=== PATIENT | male | born 1985 | race Caucasian/White ===

== ENCOUNTER 2022-02-05 11:58 | Emergency (ER) | payer OTHER, SELFPAY ==
[2022-02-05] MEDS ORDERED: ASPIRIN 81 MG CHEWABLE TABLET ONE (12:15)
[2022-02-05 12:35] LABS: Absolute Lymphocytes (CBC) 1.7 K/uL (0.7-4.9); Hematocrit 43.2 % (39.6-49.0); Lymphocytes % 20.2 % (15.3-44.8); MCV 81.3 fL (80-100); MPV 9.1 fL (7.6-11.3); RBC Red Blood Cell Count 5.32 M/uL (4.33-5.43)
[2022-02-05 12:54] LABS: ALT/SGPT 37 U/L (12-78); AST/SGOT 17 U/L (15-37); Albumin 3.9 g/dL (3.4-5.0); Alkaline Phosphatase 108 U/L (45-117); BUN Blood Urea Nitrogen 11 mg/dL (7-18); Bicarbonate 27 mmol/L (21-32); Bilirubin Total 0.2 mg/dL (0.2-1.0); Glomerular Filtration Rate 111 ml/min (=/>90); Glucose Level 95 mg/dL (74-106); Magnesium 1.9 mg/dL (1.8-2.4); NT PRO-BNP 34 pg/mL (<125); Potassium 3.9 mmol/L (3.5-5.1); Protein, Total 7.6 g/dL (6.4-8.2); Sodium Level 137 mmol/L (136-145); Troponin High Sensitivity 5.4 pg/mL (<58.9)
[2022-02-05 12:55] LABS: Bilirubin Direct < 0.1 mg/dL (0-0.2)
--- NOTE | 2022-02-05 13:24 | RAD REPORT ---
EXAM DESCRIPTION: RAD - Chest Single View - 02/05/2022 1:19 pm CLINICAL HISTORY: CHEST PAIN Chest pain. COMPARISON: No comparisons FINDINGS: Portable technique limits examination quality. The lungs are grossly clear. The heart is normal in size. No displaced fractures. IMPRESSION: No acute intrathoracic process suspected.
[2022-02-05] MEDS ORDERED: ONDANSETRON 4 MG/2 ML VIAL ONE (14:03)
[2022-02-05] MEDS ORDERED: MORPHINE 4 MG/ML SYR ONE (14:03)
--- NOTE | 2022-02-05 16:37 | ER ---
Nurse's Notes [facility] Name: Ainsley Zheng Age: 36 yrs Sex: Male : 1985 Arrival Date: 02/05/2022 Time: 12:00 Bed 24 Private MD: Diagnosis: Chest pain, unspecified Presentation: 02/05 12:05 Chief complaint: Patient states: left sided chest pain for the last few days. 3 Coronavirus screen: Vaccine status: Patient reports receiving the 2nd dose of the covid vaccine. Ebola Screen: No symptoms or risks identified at this time. Initial Sepsis Screen: Does the patient meet any 2 criteria? No. Patient's initial sepsis screen is negative. Does the patient have a suspected source of infection? No. Patient's initial sepsis screen is negative. Risk Assessment: Do you want to hurt yourself or someone else? Patient reports no desire to harm self or others. Onset of symptoms was February 05, 2022. 12:05 Method Of Arrival: Ambulatory [facility] 12:05 Acuity: BEVERLEY 3 3 Triage Assessment: 12:05 General: Appears distressed, uncomfortable, Behavior is cooperative, appropriate for 3 age, anxious. Pain: Complains of pain in left clavicle, anterior aspect of left upper chest, mid-sternal area and left breast Pain does not radiate. Pain currently is 8 out of 10 on a pain scale. Quality of pain is described as burning, Pain began 2-3 days ago. Is continuous, Alleviated by rest, Aggravated by increased activity. EENT: No signs and/or symptoms were reported regarding the EENT system. Neuro: Level of Consciousness is awake, alert, obeys commands, Oriented to person, place, time, situation. Cardiovascular: Capillary refill < 3 seconds Patient's skin is warm and dry. Cardiovascular: Rhythm is sinus rhythm. Respiratory: Airway is patent Respiratory effort is even, unlabored, Respiratory pattern is regular, symmetrical. GI: No signs and/or symptoms were reported involving the gastrointestinal system. Abdomen is flat, non-distended. : No signs and/or symptoms were reported regarding the genitourinary system. Derm: No signs and/or symptoms reported regarding the dermatologic system. Musculoskeletal: No signs and/or symptoms reported regarding the musculoskeletal system. Circulation, motion, and sensation intact. Range of motion: intact in all extremities. Historical: - Allergies: 13:49 No Known Allergies; eh3 - Immunization history:: Adult Immunizations up to date. - Social history:: Smoking status: Patient denies any tobacco usage or history of. Patient/guardian denies using alcohol. Screenin:05 Abuse screen: Denies threats or abuse. Denies injuries from another. Nutritional eh3 screening: No deficits noted. Tuberculosis screening: No symptoms or risk factors identified. Fall Risk None identified. Assessment: 12:05 Reassessment: No changes from previously documented assessment. See triage assessment. eh3 General:. Pain: Complains of pain in left breast and mid-sternal area and anterior aspect of left upper chest and left clavicle. 13:05 Reassessment: Patient and/or family updated on plan of care and expected duration. Pain eh3 level reassessed. Patient is alert, oriented x 3, equal unlabored respirations, skin warm/dry/pink. 13:47 Pain: Complains of pain in forehead, right cheek and left cheek Quality of pain is eh3 described as tingling, numb, Pain began suddenly. 14:30 Reassessment: Patient and/or family updated on plan of care and expected duration. Pain eh3 level reassessed. Patient is alert, oriented x 3, equal unlabored respirations, skin warm/dry/pink. Patient states symptoms have improved. Pain: Denies pain. 15:30 Reassessment: Patient and/or family updated on plan of care and expected duration. Pain eh3 level reassessed. Patient is alert, oriented x 3, equal unlabored respirations, skin warm/dry/pink. 16:30 Reassessment: Patient and/or family updated on plan of care and expected duration. Pain eh3 level reassessed. Patient is alert, oriented x 3, equal unlabored respirations, skin warm/dry/pink. Vital Signs: 12:05 BP 136 / 93; Pulse 79; Resp 12; Temp 98.1(O); Pulse Ox 100% on R/A; Weight 104.33 kg; eh3 Height 6 ft. 1 in. (185.42 cm); Pain 8/10; 13:05 BP 132 / 84; Pulse 80; Resp 13; Pulse Ox 100% on R/A; Pain 8/10; eh3 14:05 BP 131 / 78; Pulse 75; Resp 12; Pulse Ox 98% on R/A; eh3 15:00 BP 125 / 77; Pulse 74; Resp 12; Pulse Ox 97% on R/A; eh3 15:30 BP 124 / 71; Pulse 67; Resp 12; Pulse Ox 96% on R/A; eh3 16:30 BP 132 / 80; Pulse 74; Resp 17; Pulse Ox 97% on R/A; eh3 12:05 Body Mass Index 30.35 (104.33 kg, 185.42 cm) eh3 ED Course: 12:00 Patient arrived in ED. mr 12:04 Vincent Jacklyn, [facility]. kb 12:04 Bernard Oliver MD is Attending Physician. kb 12:05 Patient maintains SpO2 saturation greater than 95% on room air. eh3 12:05 Arm band placed on right wrist. eh3 12:05 Patient has correct armband on for positive identification. Placed in gown. Bed in low eh3 position. Call light in reach. Side rails up X2. Client placed on continuous cardiac and pulse oximetry monitoring. NIBP monitoring applied. Door closed. Noise minimized. 12:13 Aisha Ross, RN is Primary Nurse. eh3 13:20 XRAY Chest (1 view) In Process Unspecified. EDMS 13:49 Triage completed. eh3 17:12 No provider procedures requiring assistance completed. IV discontinued, intact, eh3 bleeding controlled, No redness/swelling at site. Pressure dressing applied. Administered Medications: 12:15 Drug: Aspirin Chewable Tablet 324 mg Route: PO; eh3 13:00 Follow up: Response: No adverse reaction eh3 14:08 Drug: morphine 4 mg Route: IVP; Infused Over: 4 mins; Site: right antecubital; eh3 15:06 Follow up: Response: Pain is decreased eh3 14:08 Drug: Zofran (Ondansetron) 4 mg Route: IVP; Site: right antecubital; eh3 15:05 Follow up: Response: No adverse reaction eh3 Medication: 17:13 VIS not applicable for this client. eh3 Outcome: 16:36 Discharge ordered by . kb 17:12 Discharged to home ambulatory, with family. eh3 17:12 Condition: stable 17:12 Discharge instructions given to patient, family, Instructed on discharge instructions, follow up and referral plans. Demonstrated understanding of instructions, follow-up care. 17:35 Patient left the ED. eh3 Signatures: Dispatcher [employer] EDJacklyn Garibay, ROSA CHÁVEZ-Ben HernandezaMalka mr Sadie Darnell, RN RN ld1 Aisha Ross, LARS RN eh3 Corrections: (The following items were deleted from the chart) 12:06 12:05 Inserted saline lock: 20 gauge in left antecubital area, using aseptic technique. ld1 Blood collected. ld1 13:58 13:05 Pain: Pain currently is 8 out of 10 on a pain scale. eh3 eh3 15:05 14:30 Reassessment: Patient and/or family updated on plan of care and expected eh3 duration. Pain level reassessed. Patient is alert, oriented x 3, equal unlabored respirations, skin warm/dry/pink. Patient states symptoms have improved. eh3
--- NOTE | 2022-02-05 16:37 | EDPHYS ---
Physician Documentation [facility] Name: Ainsley Zheng Age: 36 yrs Sex: Male : 1985 Arrival Date: 02/05/2022 Time: 12:00 Bed 24 Private MD: ED Physician Bernard Oliver HPI: 02/05 13:28 This 36 yrs old Male presents to ER via Unassigned with complaints of Chest Pain, Back kb Pain. 13:28 The patient or guardian reports chest pain that is located primarily in the anterior kb chest wall, left. The pain does not radiate. Associated signs and symptoms: The patient has no apparent associated signs or symptoms. The chest pain is described as aching. Duration: The patient or guardian reports a single episode. Modifying factors: The symptoms are alleviated by rest, the symptoms are aggravated by activity. Severity of pain: At its worst the pain was moderate in the emergency department the pain has improved. The patient has not experienced similar symptoms in the past. The patient has not recently seen a physician. Pt reports left sided chest pain for 3-4 days. Pain worse with exertion and improves with rest. Denies any cardiac history. Historical: - Allergies: 13:49 No Known Allergies; eh3 - Immunization history:: Adult Immunizations up to date. - Social history:: Smoking status: Patient denies any tobacco usage or history of. Patient/guardian denies using alcohol. ROS: 13:27 Constitutional: Negative for fever, chills, and weight loss. kb 13:27 Cardiovascular: Positive for chest pain, Negative for edema, orthopnea, palpitations, paroxysmal nocturnal dyspnea. 13:27 All other systems are negative. Exam: 13:27 Constitutional: This is a well developed, well nourished patient who is awake, alert, kb and in no acute distress. Head/Face: Normocephalic, atraumatic. ENT: Moist Mucous membranes Cardiovascular: Regular rate and rhythm with a normal S1 and S2. No gallops, murmurs, or rubs. No pulse deficits. Respiratory: Respirations even and unlabored. No increased work of breathing. Talking in full sentences Abdomen/GI: Soft, non-tender. No distention Skin: Warm, dry with normal turgor. Normal color. MS/ Extremity: Pulses equal, no cyanosis. Neurovascular intact. Full, normal range of motion. Neuro: Awake and alert, GCS 15, oriented to person, place, time, and situation. Moves all extremities. Normal gait. Psych: Awake, alert, with orientation to person, place and time. Behavior, mood, and affect are within normal limits. 14:12 ECG was reviewed by the Attending Physician. kb Vital Signs: 12:05 BP 136 / 93; Pulse 79; Resp 12; Temp 98.1(O); Pulse Ox 100% on R/A; Weight 104.33 kg; eh3 Height 6 ft. 1 in. (185.42 cm); Pain 8/10; 13:05 BP 132 / 84; Pulse 80; Resp 13; Pulse Ox 100% on R/A; Pain 8/10; eh3 14:05 BP 131 / 78; Pulse 75; Resp 12; Pulse Ox 98% on R/A; eh3 15:00 BP 125 / 77; Pulse 74; Resp 12; Pulse Ox 97% on R/A; eh3 15:30 BP 124 / 71; Pulse 67; Resp 12; Pulse Ox 96% on R/A; eh3 16:30 BP 132 / 80; Pulse 74; Resp 17; Pulse Ox 97% on R/A; eh3 12:05 Body Mass Index 30.35 (104.33 kg, 185.42 cm) eh3 MDM: 12:04 Patient medically screened. kb 13:27 Data reviewed: vital signs, nurses notes. Data interpreted: Pulse oximetry: on room air kb is 100 %. Interpretation: normal. Counseling: I had a detailed discussion with the patient and/or guardian regarding: the historical points, exam findings, and any diagnostic results supporting the discharge/admit diagnosis, lab results, radiology results, the need for outpatient follow up, a family practitioner, to return to the emergency department if symptoms worsen or persist or if there are any questions or concerns that arise at home. 02/05 12:07 Order name: Basic Metabolic Panel; Complete Time: 13:05 kb 02/05 12:07 Order name: CBC with Diff; Complete Time: 12:42 kb 02/05 12:07 Order name: D-Dimer; Complete Time: 12:38 kb 02/05 12:07 Order name: LFT's; Complete Time: 13:05 kb 02/05 12:07 Order name: Magnesium; Complete Time: 13:05 kb 02/05 12:07 Order name: NT PRO-BNP; Complete Time: 13:05 kb 02/05 12:07 Order name: Troponin HS; Complete Time: 13:05 kb 02/05 12:07 Order name: XRAY Chest (1 view); Complete Time: 13:26 kb 02/05 12:07 Order name: EKG; Complete Time: 12:07 kb 02/05 12:07 Order name: Cardiac monitoring; Complete Time: 12:14 kb 02/05 14:32 Order name: Troponin HS; Complete Time: 16:36 kb 02/05 12:07 Order name: EKG - Nurse/Tech; Complete Time: 12:14 kb 02/05 12:07 Order name: IV Saline Lock; Complete Time: 12: kb 02/05 12:07 Order name: Labs collected and sent; Complete Time: 12:26 kb 02/05 12:07 Order name: O2 Per Protocol; Complete Time: 12:14 kb 02/05 12:07 Order name: O2 Sat Monitoring; Complete Time: 12:14 kb 02/05 15:29 Order name: Labs - recollect needed: please recollect green top; Complete Time: 16:01 em1 EC:12 Rate is 81 beats/min. Rhythm is regular. QRS [place] is Normal. IN interval is normal at kb 154 msec. QRS interval is normal at 94 msec. QT interval is normal at 413 msec. Administered Medications: 12:15 Drug: Aspirin Chewable Tablet 324 mg Route: PO; 3 13:00 Follow up: Response: No adverse reaction 3 14:08 Drug: morphine 4 mg Route: IVP; Infused Over: 4 mins; Site: right antecubital; eh3 15:06 Follow up: Response: Pain is decreased eh3 14:08 Drug: Zofran (Ondansetron) 4 mg Route: IVP; Site: right antecubital; eh3 15:05 Follow up: Response: No adverse reaction 3 Disposition Summary: 02/05/22 16:36 Discharge Ordered Location: Home kb Condition: Stable kb Diagnosis - Chest pain, unspecified kb Followup: kb - With: Emergency Department - When: As needed - Reason: Worsening of condition Followup: kb - With: Private Physician - When: 2 - 3 days - Reason: Recheck today's complaints, Continuance of care, Re-evaluation by your physician Discharge Instructions: - Discharge Summary Sheet kb - Nonspecific Chest Pain, Adult, [id number] kb Forms: - Medication Reconciliation Form kb - Thank You Letter kb - Antibiotic Education kb - Prescription Opioid Use kb - Family Work Release 3 Signatures: Dispatcher [employer] Jacklyn Cabello, KYLER-C POSTAL SERVICE MAIL PROCESSOR-Patrick Arguelles em1 Aisha Ross, RN RN eh3
[2022-02-05 18:47] VITALS: TEMP 98.1
[2022-02-05 18:53] VITALS: BP 132/80; O2SAT 97
== END 2022-02-05 17:35 | disposition home or self-care (01) ==
LOC: ER 11:58
DX: R07.89 Other chest pain (principal)
CPT/HCPCS: 36415; 71045; 80048; 80076; 83735; 83880; 84484; 85025; 85379; 93005; 96374; 96375; 99284; J2405

== ENCOUNTER 2022-11-23 08:11 | Emergency (ER) | payer OTHER, SELFPAY ==
[2022-11-23 09:11] LABS: Absolute Lymphocytes (CBC) 1.3 K/uL (0.7-4.9); Hematocrit 41.6 % (39.6-49.0); Lymphocytes % 27.6 % (15.3-44.8); MCV 80.6 fL (80-100); Platelets 195 thou/uL (152-406); RBC Red Blood Cell Count 5.16 M/uL (4.33-5.43)
[2022-11-23 09:20] LABS: Potassium 3.9 mEq/L (3.5-5.1)
--- NOTE | 2022-11-23 09:24 | RAD REPORT ---
EXAM DESCRIPTION: CT - Head C Spine Cap Raya Robison - 11/23/2022 8:46 am CLINICAL HISTORY: Pain;Trauma COMPARISON: No comparisons TECHNIQUE: Head and cervical spine CT images were obtained without IV contrast. Chest, abdomen, and pelvis CT images were obtained following intravenous administration of 100 mL Isovue-300. Multiplanar reformats were generated and reviewed. All CT scans are performed using dose optimization technique as appropriate and may include automated exposure control or mA/KV adjustment according to patient size. FINDINGS: CT HEAD: No intracranial hemorrhage, mass effect, or edema. No evidence of acute territorial infarct. No midli ne shift or abnormal fluid collection. The ventricles are normal in caliber and configuration for age . Basal cisterns are patent. Mastoid aircells and paranasal sinuses are clear. No acute skull fractur e. CT CERVICAL SPINE: No acute cervical spine fracture or subluxation. Vertebral body heights are well maintained. Facet bhupendra ints are normal in alignment. No hyperattenuating canal hematoma. Prevertebral and paraspinous soft t issues are unremarkable. CT CHEST: No pneumothorax, pulmonary contusion or pleural fluid collection. No mediastinal hematoma and the aor ta and pulmonary arteries are unremarkable. No chest will mass or abnormal axillary finding. No displ aced rib fracture or other significant bony finding. CT ABDOMEN/ PELVIS: No evidence of traumatic injury to solid abdominal viscera. Gallbladder and biliary tree are unremark able. Incidentally noted bilateral small fat containing inguinal hernias. No bowel injury or signific ant finding. No free air, free fluid or abnormal fat stranding. No urinary bladder abnormality. No significant bony finding. IMPRESSION: No acute traumatic abnormalities. No other acute findings.
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
[2022-11-23] MEDS ORDERED: KETOROLAC 30 MG/ML INJ ONE (10:14)
[2022-11-23 10:58] VITALS: TEMP 98.1
[2022-11-23 11:00] VITALS: BP 162/98; O2SAT 98
== END 2022-11-23 10:29 | disposition home or self-care (01) ==
LOC: ER 08:11
DX: M54.9 Dorsalgia, unspecified (principal); M54.2 Cervicalgia; V53.6XXA Passenger in pick-up truck or van injured in collision with car, pick-up truck or van in traffic accident, initial encounter
CPT/HCPCS: 85025; 80048; 36415; 86900; 86850; 86901; 70450; 72125; 71260; 74177; 96374; 99285; Q9967